=== PATIENT | male | born 1960 | race Caucasian/White ===

== ENCOUNTER → 2016-09-14 | Outpatient (CLI) | payer OTHER ==
[~2016-09-14] MED LIST: ACTOS15 MG PO; AMLODIPINE BESYL5 MG PO; ATENOLOL50 MG PO; AUGMENTIN875 MG PO; BACTRIM,SEPT1 TABLET PO; CEFUROXIME500 MG PO; CELEXA10 MG PO; CIPROFLOXACIN500 M1 PO; CITALOPRAM HBR20 MG PO; CITALOPRAM HBR40 MG PO; CLEOCIN300 MG PO; Cipro PO; GLIPIZIDE; GLIPIZIDE10 MG PO; GLUCOTROL10 MG PO; KEFLEX500 MG PO; LANTUS 10100 UNITS/ SC; LISINOPRIL20 MG PO; LORTAB 5-325 M1 EACH PO; METFORMIN HCL; METFORMIN HCL500 MG PO; METFORMIN HCL850 MG PO; OXYCONTIN PO; PERCOCET 5/31 TABLET PO; TRAMADOL HCL50 MG PO; ULTRAM50 MG PO; Vicodin,Norco 5/325 PO
== END | disposition home or self-care (01) ==
LOC: PICC 07:45
DX: S91.031D Puncture wound without foreign body, right ankle, subsequent encounter (principal)
CPT/HCPCS: 76937

== ENCOUNTER 2016-11-26 10:45 | Day surgery (SDC) | payer OTHER ==
[~2016-11-26] VITALS: Ht 185.4 cm; Wt 125.0 kg
[~2016-11-26 10:45] MED LIST changes: +LANTUS 3 M100 UNITS1 SC; +NORVASC5 MG PO; +OXAYDO5 MG PO
[2016-11-26 11:00] VITALS: BP 143/90
[2016-11-26] MEDS ORDERED: NOVOLOG MI100 UNIT/4 SC (12:49)
[2016-11-26] MEDS ORDERED: NOVOLOG 10100 UNITS/ SC ×2 (12:54)
[2016-11-26 15:01] LABS: METH RESISTANT S AUREUS PCR NEGATIVE (NEGATIVE)
[2016-11-26 15:05] LABS: PROBE CHECK PASS; SPECIMEN PROCESSING CONTROL PASS
[2016-11-29 12:18] LABS: POINT-OF-CARE METER ID UU14174212
== END 2016-11-26 12:25 | disposition home or self-care (01) ==
LOC: SDC 10:45
PROVIDERS: Podiatrist Foot & Ankle Surgery
PROC: 0YJ Anatomical Regions, Lower Extremities, Inspection (ICD-10-PCS; principal; 2016-11-26)
DX: M86.671 Other chronic osteomyelitis, right ankle and foot (principal); Z53.09 Procedure and treatment not carried out because of other contraindication; E11.65 Type 2 diabetes mellitus with hyperglycemia
CPT/HCPCS: 82948; 87641; J3370; J7120